=== PATIENT | male | born 1935 | race Caucasian/White ===

== ENCOUNTER → 2017-06-30 | Day surgery (SDC) | payer OTHER ==
[~2017-06-30] VITALS: Ht 177.8 cm; Wt 63.5 kg
[~2017-06-30] MED LIST: ACCUPRIL20 MG PO; ASPIRIN325 M2 PO; Amaryl2 MG PO; BISACODYL10 MG RC; BUMEX1 MG PO; COLACE100 MG PO; FEOSOL325 MG PO; IMDUR SA30 MG PO; IMDUR60 MG PO; K-DUR 20MEQ20 MEQ PO; MILK OF MA400 MG/5 M PO; NEURONTIN100 MG PO; NORCO 5-325 TA1 EACH PO; NORMODYNE,TRAN100 MG PO; NORVASC10 MG PO; PRAVACHOL80 M1 PO; RIVASTIGMINE TAR3 M1 PO; SANTYL30 GM T; SIMVASTATIN80 MG PO; TYLENOL325 M2 PO; VITAMIN D34000 UNIT PO
--- NOTE | ~2017-06-30 | O ---
[place], [place] OPERATIVE NOTE NAME: [facility]AILEY [id number] UNIT #: [id number] ROOM: DOCTOR: ANGIE HERMAN,MAU BIRTHDATE: [birth year] DOS: GASTROENDOSCOPIC REPORT The patient has presented to [facility]. The patient on ferrous sulfate. The patient with multiple erosions in the gastric pouch and on aspirin. PROCEDURE: Today's procedure part of investigation is flexible sigmoidoscopy, aborted colonoscopy due to the fact the patient has retained stool. REPORT: After putting the patient in the left lateral position, Olympus folding colonoscope 10L was introduced; thereafter, under direct visualization with difficulty, was introduced to about 50 cm. Solid stool throughout the length of this segment of the colon was identified, visualization absolutely zero. I scoped after lavage of the area with water. The patient extubated, tolerated procedure well. IMPRESSION: Retained stool; therefore, aborted colonoscopy. I have checked his medications. He has been on milk of magnesia p.r.n., which he has barely taken. He has been on bisacodyl p.r.n. barely taken; however, he is on a scheduled Colace 100 mg twice a day that we are going to compliment with 17 g of MiraLax daily till he has adequate evacuation and if he develops diarrhea, we are going to back off the MiraLax for 2 days and then readjustment as necessary. I thank you very much indeed for your kind referral. MAU ADAMS MD CM:OPRECORD:OPERATIVE NOTE [id number] MAU ADAMS MD 06/30/17 1426 interface
--- NOTE | ~2017-06-30 | O ---
[place], [place] OPERATIVE NOTE NAME: ROVERTO BAILEY UNIT #: [id number] ROOM: DOCTOR: MAU ADAMS MD BIRTHDATE: [birth year] DOS: GASTROENDOSCOPIC REPORT HISTORY OF PRESENT ILLNESS: An 82-year-old who presented with chief complaint of guaiac positivity, anemia, on ferrous sulfate. PAST MEDICAL HISTORY: Hypercholesterolemia, hypertension, diabetes mellitus, Alzheimer's. ALLERGIES: PLAVIX, IODINE AND PREVACID. SOCIAL HISTORY: Nonsmoker, nonalcohol consumer. Resides in [facility]. PAST SURGICAL HISTORY: Noncontributory. PROCEDURE: Today's procedure part of investigation is panendoscopy plus flexible sigmoidoscopy. PREMEDICATION: Versed and Diprivan. SCOPE: Olympus forward-viewing gastroscope Q10 video. REPORT: After putting the patient in the left lateral position and after application of lubricant to the scope, the scope was introduced; thereafter, under direct visualization, advanced through the length of esophagus without difficulty into a small hiatal hernia into gastric pouch. Multiple gastric erosions identified. Base duodenal bulb, second and third part within normal limit. Antrum was biopsied. Erosions photographed. The patient was gradually extubated and tolerated the procedure well. IMPRESSION: Hiatal hernia, multiple gastric erosions, which could be secondary to aspirin. This patient has been allergic to Prevacid before therefore, we are going to change category. We are going to start him on famotidine 40 mg 1 at bedtime 90 tablets and 3 refills given. On the other hand, we are going to proceed with colonoscopic evaluation. [place], [place] OPERATIVE NOTE NAME: ROVERTO BAILEY UNIT #: [id number] ROOM: DOCTOR: MAU ADAMS MD BIRTHDATE: [birth year] MAU ADAMS MD CM:OPRECORD:OPERATIVE NOTE 1240 [id number] MAU ADAMS MD 06/30/17 1418 interface
[2017-06-30 11:28] VITALS: BP 131/63
[2017-06-30 12:28] VITALS: BP 131/63
[2017-06-30 12:43] VITALS: BP 123/75
[2017-06-30 12:50] VITALS: BP 123/75
== END | disposition home or self-care (01) ==
LOC: SDC 06-27 09:30
DX: R19.5 Other fecal abnormalities (principal); K29.50 Unspecified chronic gastritis without bleeding; K44.9 Diaphragmatic hernia without obstruction or gangrene; K25.9 Gastric ulcer, unspecified as acute or chronic, without hemorrhage or perforation; Z88.8 Allergy status to other drugs, medicaments and biological substances; Z86.73 Personal history of transient ischemic attack (TIA), and cerebral infarction without residual deficits; K21.9 Gastro-esophageal reflux disease without esophagitis; Z96.653 Presence of artificial knee joint, bilateral; Z95.1 Presence of aortocoronary bypass graft; M19.90 Unspecified osteoarthritis, unspecified site; I12.9 Hypertensive chronic kidney disease with stage 1 through stage 4 chronic kidney disease, or unspecified chronic kidney disease; N18.9 Chronic kidney disease, unspecified; E11.22 Type 2 diabetes mellitus with diabetic chronic kidney disease; I25.10 Atherosclerotic heart disease of native coronary artery without angina pectoris; Z87.891 Personal history of nicotine dependence

== ENCOUNTER → 2017-08-11 | Outpatient (CLI) | payer OTHER ==
[2017-08-11] VITALS (14 sets, daily range): BP systolic 100–157; BP diastolic 56–75
== END | disposition home or self-care (01) ==
LOC: TRNFUSION 02:01
DX: D64.9 Anemia, unspecified (principal)